=== PATIENT | male | born 1940 | race Caucasian/White ===

== ENCOUNTER 2017-07-21 16:39 | Emergency (ER) | payer MEDICARE ==
--- NOTE | 2017-07-21 16:40 | UC ---
[facility] HPI - HPI Summary HPI Summary: 77 YEAR OLD MALE WITH A HISTORY OF A DENTAL ABSCESS PRESENTS WITH COMPLAINS OF LEFT LOWER JAW PAIN. - History of Current Complaint Stated Complaint: JAW PAIN Time Seen by Provider: 07/21/17 16:40 Hx Obtained From: Patient Onset/Duration: Sudden Onset Severity: Moderate Pain Scale Used: 0-10 Numeric - 8 - Allergies/Home Medications Allergies/Adverse Reactions: Allergies Allergy/AdvReac Type Severity Reaction Status Date / Time No Known Allergies Allergy Verified 07/21/17 16:52 Home Medications: Home Medications Flecainide TAB* [Tambocor TAB*] 100 mg PO BID 07/21/17 [History Confirmed ] Metoprolol Tartrate TAB* [Lopressor TAB*] 25 mg PO DAILY 07/21/17 [History Confirmed 07/21/17] Rivaroxaban TAB(*) [Xarelto 20 mg] 20 mg PO BEDTIME 07/21/17 [History Confirmed 07/21/17] PMH/Surg Hx/FS Hx/Imm Hx Previously Healthy: Yes Review of Systems Constitutional: Negative Skin: Negative Eyes: Negative ENT: Dental Pain Respiratory: Negative Cardiovascular: Negative Gastrointestinal: Negative Genitourinary: Negative Motor: Negative Neurovascular: Negative Musculoskeletal: Negative Neurological: Negative Psychological: Negative All Other Systems Reviewed And Are Negative: Yes Physical Exam Triage Information Reviewed: Yes Vital Signs Reviewed: Yes Eye Exam: Normal ENT Exam: Normal Dental: Positive: Abscess @ Neck exam: Normal Neck: Positive: 1 Respiratory Exam: Normal Cardiovascular Exam: Normal Abdominal Exam: Normal Musculoskeletal Exam: Normal Neurological Exam: Normal Psychological Exam: Normal Skin Exam: Normal Dental Complaint Course/Dx - Differential Dx/Diagnosis Provider Diagnoses: LEFT LOWER ABSCESS Discharge - Discharge Plan Condition: Stable Disposition: HOME Prescriptions: Penicillin VK 500 MG TAB(NF) [Penicillin VK 500 mg Tab] 500 mg PO QID #40 tab Patient Education Materials: Dental Abscess (ED)
[2017-07-21 16:52] VITALS: BP 147/63
== END 2017-07-21 17:35 | disposition home or self-care (01) ==
LOC: UCCORT 16:39
DX: K04.7 Periapical abscess without sinus (principal)
CPT/HCPCS: 99202; G0463

== ENCOUNTER 2017-10-13 12:49 | Emergency (ER) | payer MEDICARE ==
[2017-10-13 14:24] VITALS: BP 195/81
[2017-10-13] MEDS ORDERED: Penicillin VK TAB* 250 MG PO ONE (15:10)
--- NOTE | 2017-10-13 15:10 | UC ---
Respiratory Complaint HPI - HPI Summary HPI Summary: 77 YO MALE WITH LEFT JAW SWELLING AND PAIN X 3 DAYS SIMILAR SYMPTOMS LAST YR NO F/C NO HX HEART MURMUR - History of Current Complaint Chief Complaint: UCDentalProblem Stated Complaint: SKIN COMPLAINT Time Seen by Provider: 10/13/17 15:03 Hx Obtained From: Patient Onset/Duration: Gradual Onset, Lasting Days Timing: Constant Severity Initially: Moderate Severity Currently: Moderate Pain Intensity: 4 Pain Scale Used: 0-10 Numeric Associated Signs And Symptoms: Positive: Negative - Allergies/Home Medications Allergies/Adverse Reactions: Allergies Allergy/AdvReac Type Severity Reaction Status Date / Time No Known Allergies Allergy Verified 10/13/17 14:16 PMH/Surg Hx/FS Hx/Imm Hx Previously Healthy: Yes Cardiovascular History: Hypertension, Atrial Fibrillation - Surgical History Surgical History: Yes Surgery Procedure, Year, and Place: epiglotitis - Family History Known Family History: Positive: Hypertension - Social History Alcohol Use: None Substance Use Type: None Smoking Status (MU): Never Smoked Tobacco Review of Systems Constitutional: Negative Skin: Negative Eyes: Negative ENT: Dental Pain Respiratory: Negative Cardiovascular: Negative Gastrointestinal: Negative Genitourinary: Negative Motor: Negative Neurovascular: Negative Musculoskeletal: Negative Neurological: Negative Psychological: Negative Is Patient Immunocompromised?: No All Other Systems Reviewed And Are Negative: Yes Physical Exam Triage Information Reviewed: Yes Appearance: Well-Appearing, No Pain Distress, Well-Nourished Vital Signs: Initial Vital Signs Temp 99.2 F 10/13/17 14:18 Pulse 84 10/13/17 14:18 Resp 18 10/13/17 14:18 BP 195/81 10/13/17 14:18 Pulse Ox 100 10/13/17 14:18 Vital Signs Reviewed: Yes ENT: Positive: Hearing grossly normal, Uvula midline. Negative: Nasal congestion, Nasal drainage Dental: Positive: Other: - SEE IMAGE Neck: Positive: Supple, Nontender, No Lymphadenopathy Respiratory: Positive: Lungs clear, Normal breath sounds, No respiratory distress, No accessory muscle use Cardiovascular: Positive: RRR, No Murmur Musculoskeletal: Positive: ROM Intact, No Edema Neurological: Positive: Alert UC Diagnostic Evaluation - Laboratory O2 Sat by Pulse Oximetry: 100 Respiratory Course/Dx - Differential Dx/Diagnosis Provider Diagnoses: DENTAL ABSCESS Discharge - Discharge Plan Condition: Stable Disposition: HOME Prescriptions: Penicillin VK 500 MG TAB(NF) [Penicillin VK 500 mg Tab] 500 mg PO QID #56 tab Patient Education Materials: Dental Abscess (ED) Referrals: Non Staff,Doctor [Primary Care Provider] - Additional Instructions: To ER if not improved in 48 hours YOU NEED TO SEE A DENTIST FIRST AVAILABLE APPT Images Head: 1 - SWOLLEN/TENDER Dental: 1 - ABSENT/ROTTED TO GUM LINE 2 - SWOLLEN
== END 2017-10-13 15:20 | disposition home or self-care (01) ==
LOC: UCCORT 12:49
DX: K04.7 Periapical abscess without sinus (principal)
CPT/HCPCS: 99212; A9270-GY; G0463